=== PATIENT | female | born 1945 | race Caucasian/White ===

== ENCOUNTER 2021-02-17 12:47 | Day surgery (SDC) | payer MEDICARE ==
[~2021-02-17] VITALS: Ht 167.6 cm; Wt 101.2 kg
[2021-02-17] MEDS ORDERED: OMNIPAQUE 350 MG/ML, 50 ML BOTTLE ONE (13:32)
[2021-02-17 13:41] VITALS: BP 133/84
[2021-02-17] MEDS ORDERED: HYDR-826 PO (13:47)
[2021-02-17] MEDS ORDERED: CEFU250T66 PO (13:47)
[2021-02-17] MEDS ORDERED: DULO30CA2 PO (13:47)
[2021-02-17] MEDS ORDERED: CHLORHEXIDINE 15 ML UDC PO ONE (14:00)
[2021-02-17] MEDS ORDERED: LACTATED RINGERS 1,000 ML IV SCH (14:00)
[2021-02-17] MEDS ORDERED: PROMETHAZINE 25 MG/ML, 1ML IVPush PRN (15:00)
[2021-02-17] MEDS ORDERED: hydrALAzine 20 MG/ML, 1ML IV PRN (15:00)
[2021-02-17] MEDS ORDERED: MEPERIDINE/PF 25MG/0.5ML IVPush PRN (15:00)
[2021-02-17] MEDS ORDERED: DIPHENHYDRAMINE 50 MG/ML, 1ML IVPush PRN (15:00)
[2021-02-17] MEDS ORDERED: FENTANYL PF 100 MCG/2ML IV PRN (15:00)
[2021-02-17] MEDS ORDERED: LABETALOL 5MG/ML, 20ML IV PRN (15:00)
[2021-02-17] MEDS ORDERED: HALOPERIDOL 5 MG/ML IV PRN (15:00)
[2021-02-17] MEDS ORDERED: FENTANYL PF 100 MCG/2ML ONE (15:03)
[2021-02-17] MEDS ORDERED: ROCURONIUM 10MG/ML,5ML ONE (16:17)
[2021-02-17] MEDS ORDERED: PROPOFOL 10 MG/ML, 20ML ONE (16:17)
[2021-02-17] MEDS ORDERED: ONDANSETRON 2MG/ML, 2ML ONE (16:17)
[2021-02-17] MEDS ORDERED: GLYCOPYRROLATE 0.2MG/1ML, 5ML ONE (16:17)
[2021-02-17] MEDS ORDERED: NEOSTIGMINE 1 MG/ML, 10ML ONE (16:17)
[2021-02-17] MEDS ORDERED: CEFAZOLIN 1,000 MG ONE (16:17)
[2021-02-17] MEDS ORDERED: SUCCINYLCHOLINE 20 MG/ML, 10ML ONE (16:17)
[2021-02-17] MEDS ORDERED: INDOMETHACIN 50 MG SUPP.RECT PR ONE (16:30)
[2021-02-17] MEDS ORDERED: INDOMETHACIN 50 MG SUPP.RECT ONE (16:31)
== END 2021-02-17 18:55 | disposition home or self-care (01) ==
LOC: OUT 12:47
PROVIDERS: ATTEND Internal Medicine Gastroenterology
DX: K83.1 Obstruction of bile duct (principal); C25.0 Malignant neoplasm of head of pancreas; C78.89 Secondary malignant neoplasm of other digestive organs; K29.50 Unspecified chronic gastritis without bleeding; K90.0 Celiac disease; M06.9 Rheumatoid arthritis, unspecified; E66.01 Morbid (severe) obesity due to excess calories; Z68.37 Body mass index [BMI] 37.0-37.9, adult; Z79.899 Other long term (current) drug therapy; Z88.1 Allergy status to other antibiotic agents; Z88.2 Allergy status to sulfonamides
CPT/HCPCS: 43239; 43242; 43274; 74328; 88112; 88172; 88173; 88177; 88305; 88307; 93005; C1769; C1894; C2625; J0330; J2405; J2704; J3010; J7120; Q9967; J0690; J2710